=== PATIENT | male | born 1990 | race Hispanic/Latino ===

== ENCOUNTER 2019-09-12 22:24 | Emergency (ER) | payer OTHER, SELFPAY ==
--- OUTSIDE RECORDS SUMMARY | 2019-09-12 22:27 | XMS REPORT ---
:1990 [facility] Address [address] [place] [address] Dr. Bermudez [address] [place] [id number] Care Team Providers Name Role Phone Unavailable Unavailable Unavailable Problems This patient has no known problems. Allergies, Adverse Reactions, Alerts This patient has no known allergies or adverse reactions. Medications This patient has no known medications.
[2019-09-12] MEDS ORDERED: METHYLPREDNISOLONE 125 MG INJ ONE (23:21)
[2019-09-12 23:37] LABS: Absolute Lymphocytes (CBC) 2.6 K/uL (0.7-4.9); Basophils % 0.3 % (0-1.3); Hematocrit 45.6 % (39.6-49.0); Lymphocytes % 18.4 % (15.3-44.8); MPV 8.6 fL (7.6-11.3); RBC Red Blood Cell Count 5.21 M/uL (4.33-5.43)
[2019-09-12 23:38] LABS: Albumin 3.9 g/dL (3.4-5.0); Bilirubin Direct 0.1 mg/dL (0-0.2); Bilirubin Total 0.4 mg/dL (0.2-1.0); C-Reactive Protein 15.4 mg/L (<3.00); Potassium 3.8 mmol/L (3.5-5.1)
[2019-09-13 00:03] LABS: Urine Blood NEGATIVE (NEG); Urine Glucose 2+ (NEG); Urine Protein NEGATIVE (NEG); Urine pH 5.5 (5.0-7.0)
--- NOTE | 2019-09-13 00:27 | ER ---
Nurse's Notes [facility] Name: Josep Baldwin Age: 29 yrs Sex: Male : 1990 Arrival Date: 09/12/2019 Time: 22:34 Bed 26 Private MD: Diagnosis: Vasculitis limited to skin, not elsewhere classified Presentation: 09/12 22:53 Presenting complaint: Patient states: pt with rash to lower legs, lower abd, lower back ak1 since last Tuesday. Transition of care: patient was not received from another setting of care. Onset of symptoms is unknown. Risk Assessment: Do you want to hurt yourself or someone else? Patient reports no desire to harm self or others. Initial Sepsis Screen: Does the patient meet any 2 criteria? No. Patient's initial sepsis screen is negative. Does the patient have a suspected source of infection? No. Patient's initial sepsis screen is negative. Care prior to arrival: None. 22:53 Method Of Arrival: Ambulatory ak1 22:53 Acuity: EKATERINA 3 ak1 Historical: - Allergies: 22:55 No Known Allergies; ak1 - Home Meds: 22:55 None [Active]; ak1 - PMHx: 22:55 None; ak1 - PSHx: 22:55 None; ak1 - Immunization history:: Adult Immunizations unknown. - Social history:: Smoking status: Patient/guardian denies using tobacco. - Ebola Screening: : No symptoms or risks identified at this time. Screenin:27 Abuse screen: Denies threats or abuse. Denies injuries from another. Nutritional rv screening: No deficits noted. Tuberculosis screening: No symptoms or risk factors identified. Fall Risk None identified. Assessment: 23:23 General: Appears in no apparent distress. comfortable, Behavior is calm, cooperative. rv Pain: Denies pain. Neuro: Level of Consciousness is awake, alert, obeys commands, Oriented to person, place, time, situation. Cardiovascular:. Respiratory: Airway is patent. Derm: Wound noted Rash noted that is red, on right bennett and left bennett. Vital Signs: 22:53 BP 149 / 96; Pulse 118; Resp 16; Temp 98.7; Pulse Ox 99% on R/A; Weight 120.2 kg (R); ak1 Height 5 ft. 8 in. (172.72 cm) (R); Pain 6/10; 09/13 00:00 BP 144 / 89; Pulse 103; Resp 18; Pulse Ox 99% on R/A; rv 00:30 BP 138 / 86; Pulse 101; Resp 16; Pulse Ox 99% on R/A; rv 09/12 22:53 Body Mass Index 40.29 (120.20 kg, 172.72 cm) ak1 ED Course: 09/12 22:34 Patient arrived in ED. ag3 22:44 Abner Chamorro PA is PHCP. jr8 22:44 Grant Whitmore MD is Attending Physician. jr8 22:53 Arm band placed on Patient placed in an exam room, on a stretcher, Patient notified of ak1 wait time. 22:54 Triage completed. ak1 23:05 Craig Rodgers, MIKEY is Primary Nurse. rv 23:11 Initial lab(s) drawn, by ma, sent to lab. Inserted saline lock: 22 gauge in right lt1 antecubital area, using aseptic technique. 23:27 Patient has correct armband on for positive identification. Bed in low position. Call rv light in reach. Side rails up X 1. Pulse ox on. NIBP on. 09/13 01:14 No provider procedures requiring assistance completed. IV discontinued, intact, rv bleeding controlled, No redness/swelling at site. Pressure dressing applied. Administered Medications: 09/12 23:22 Drug: SOLU-Medrol 125 mg Route: IVP; Site: right antecubital; rv 09/13 01:14 Follow up: Response: No adverse reaction rv Outcome: 00:25 Discharge ordered by . jr8 01:14 Discharged to home ambulatory, with family. rv 01:14 Condition: good 01:14 Discharge instructions given to patient, Instructed on discharge instructions, follow up and referral plans. medication usage, Demonstrated understanding of instructions, follow-up care, medications, Prescriptions given X 1. 01:15 Patient left the ED. rv Signatures: Abner Chamorro PA PA jr8 Elisa Conklin RN RN ak1 Craig Rodgers RN RN Nory Burnette 3 [facility] Corrections: (The following items were deleted from the chart) 09/12 22:55 22:53 Acuity: EKATERINA 4 ak1 ak1
--- NOTE | 2019-09-13 00:27 | EDPHYS ---
Physician Documentation [facility] Name: Josep Baldwin Age: 29 yrs Sex: Male : 1990 Arrival Date: 09/12/2019 Time: 22:34 Bed 26 Private MD: ED Physician Grant Whitmore HPI: 09/13 00:16 This 29 yrs old Male presents to ER via Ambulatory with complaints of BUMPS ON jr8 KNEES. 00:16 The patient's rash thought to be caused by an unknown cause. The rash is located on the jr8 back, abdomen, right arm, left arm, right leg and left leg. The rash can be described as macular, papular. Onset: The symptoms/episode began/occurred gradually, 1 week(s) ago. Associated signs and symptoms: Pertinent positives: Pain. Severity of symptoms: At their worst the symptoms were moderate in the emergency department the symptoms are unchanged. The patient has not experienced similar symptoms in the past. The patient has not recently seen a physician. Denies travel, fevers, vomiting, chemical exposure, abdominal pain, hematuria, or any other problem other then rash that is present . Historical: - Allergies: 09/12 22:55 No Known Allergies; ak1 - Home Meds: 22:55 None [Active]; ak1 - PMHx: 22:55 None; ak1 - PSHx: 22:55 None; ak1 - Immunization history:: Adult Immunizations unknown. - Social history:: Smoking status: Patient/guardian denies using tobacco. - Ebola Screening: : No symptoms or risks identified at this time. ROS: 09/13 00:16 Eyes: Negative for injury, pain, redness, and discharge, ENT: Negative for injury, jr8 pain, and discharge, Neck: Negative for injury, pain, and swelling, Cardiovascular: Negative for chest pain, palpitations, and edema, Respiratory: Negative for shortness of breath, cough, wheezing, and pleuritic chest pain, Abdomen/GI: Negative for abdominal pain, nausea, vomiting, diarrhea, and constipation, Back: Negative for injury and pain, MS/Extremity: Negative for injury and deformity, Neuro: Negative for headache, weakness, numbness, tingling, and seizure. Skin: Positive for rash. Exam: 00:16 Eyes: Pupils equal round and reactive to light, extra-ocular motions intact. Lids and jr8 lashes normal. Conjunctiva and sclera are non-icteric and not injected. Cornea within normal limits. Periorbital areas with no swelling, redness, or edema. ENT: Nares patent. No nasal discharge, no septal abnormalities noted. Tympanic membranes are normal and external auditory canals are clear. Oropharynx with no redness, swelling, or masses, exudates, or evidence of obstruction, uvula midline. Mucous membranes moist. Neck: Trachea midline, no thyromegaly or masses palpated, and no cervical lymphadenopathy. Supple, full range of motion without nuchal rigidity, or vertebral point tenderness. No Meningismus. Cardiovascular: Regular rate and rhythm with a normal S1 and S2. No gallops, murmurs, or rubs. Normal PMI, no JVD. No pulse deficits. Respiratory: Lungs have equal breath sounds bilaterally, clear to auscultation and percussion. No rales, rhonchi or wheezes noted. No increased work of breathing, no retractions or nasal flaring. Abdomen/GI: Soft, non-tender, with normal bowel sounds. No distension or tympany. No guarding or rebound. No evidence of tenderness throughout. Back: No spinal tenderness. No costovertebral tenderness. Full range of motion. MS/ Extremity: Pulses equal, no cyanosis. Neurovascular intact. Full, normal range of motion. Neuro: Awake and alert, GCS 15, oriented to person, place, time, and situation. Cranial nerves II-XII grossly intact. Motor strength 5/5 in all extremities. Sensory grossly intact. Cerebellar exam normal. Normal gait. 00:16 Skin: Patient has purpuric, red, raised, painful rash to legs, arms, abdomen, back. Lesions are from a few millimeters to half dollar size . Vital Signs: 09/12 22:53 BP 149 / 96; Pulse 118; Resp 16; Temp 98.7; Pulse Ox 99% on R/A; Weight 120.2 kg (R); ak1 Height 5 ft. 8 in. (172.72 cm) (R); Pain 6/10; 09/13 00:00 BP 144 / 89; Pulse 103; Resp 18; Pulse Ox 99% on R/A; rv 00:30 BP 138 / 86; Pulse 101; Resp 16; Pulse Ox 99% on R/A; rv 09/12 22:53 Body Mass Index 40.29 (120.20 kg, 172.72 cm) ak1 MDM: 09/12 22:45 Patient medically screened. [facility] 09/13 00:19 Data reviewed: vital signs, nurses notes, lab test result(s), and as a result, I will [facility] discharge patient. Data interpreted: Pulse oximetry: on room air is 99 %. Interpretation: normal. 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 00:24 Data reviewed: I have discussed the patient's presentation/case with the attending [facility] Emergency Department Physician;. 00:26 ED course: Discussed with patient and family that based on his exam and lack of other [facility] symptoms. Presentation most consistent with cutaneous vasculitis. Also discussed possibility of being new onset diabetic. Needs to f/u for both. Explained to him that the steroids will elevate his sugar and he must drink a lot of water. If worse or other symptoms were to develop to immediately come back. Patient and family good with plan of care . 09/12 22:53 Order name: CBC with Diff; Complete Time: 00:15 [facility] 09/12 22:53 Order name: Basic Metabolic Panel; Complete Time: 00:15 [facility] 09/12 22:53 Order name: LFT's; Complete Time: 00:15 [facility] 09/12 22:53 Order name: CRP; Complete Time: 00:15 [facility] 09/12 22:53 Order name: ESR; Complete Time: 00:15 [facility] 09/12 23:46 Order name: Urine Dipstick--Ancillary (enter results); Complete Time: 00:15 [facility] 09/12 22:53 Order name: IV; Complete Time: 23:11 [facility] 09/12 22:54 Order name: Urine Dipstick-Ancillary (obtain specimen); Complete Time: 23:23 [facility] Administered Medications: 09/12 23:22 Drug: SOLU-Medrol 125 mg Route: IVP; Site: right antecubital; 09/13 01:14 Follow up: Response: No adverse reaction rv Disposition: 06:18 Co-signature as Attending Physician, Grant Whitmore MD I agree with the assessment and tw4 plan of care. Disposition: 09/13/19 00:25 Discharged to Home. Impression: Vasculitis limited to skin, not elsewhere classified. - Condition is Stable. - Discharge Instructions: Vasculitis. - Prescriptions for Prednisone 20 mg Oral Tablet - take 3 tablets by ORAL route once daily for 5 days then two tabs for 5 days then 1 tab for 5 days; 30 tablet. - Medication Reconciliation Form, Thank You Letter, Antibiotic Education, Prescription Opioid Use, Work release form form. - Follow up: Private Physician; When: 2 - 3 days; Reason: Recheck today's complaints, Continuance of care, Re-evaluation by your physician. - Problem is new. - Symptoms are unchanged. 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 Impression: Vasculitis limited to skin, not rv elsewhere classified. Condition is Stable. Forms are Medication Reconciliation Form, Thank You Letter, Antibiotic Education, Prescription Opioid Use. Follow up: Private Physician; When: 2 - 3 days; Reason: Recheck today's complaints, Continuance of care, Re-evaluation by your physician. Problem is new. Symptoms are unchanged. jr8
[2019-09-13 05:20] VITALS: TEMP 98.7; O2SAT 99
[2019-09-13 05:23] VITALS: BP 138/86
== END 2019-09-13 01:15 | disposition home or self-care (01) ==
LOC: ER 22:24
DX: L95.9 Vasculitis limited to the skin, unspecified (principal)
CPT/HCPCS: 36415; 80048; 80076; 81003; 85025; 85652; 86140; 96374; 99284; J2930